=== PATIENT | female | born 1980 | race Caucasian/White ===

== ENCOUNTER 2019-04-10 12:23 | Emergency (ER) | payer BC, MEDICAID, SELFPAY ==
[2019-04-10 12:42] VITALS: BP 153/90; PULSE 84; RESP 12; TEMP 36.6; O2SAT 99
--- NOTE | 2019-04-10 12:46 | DI.RAD.S_ITS ---
PROCEDURE: XR FOOT RT MIN 3V INDICATIONS: pain/ ? injury TECHNIQUE: 3 views of the foot were acquired. COMPARISON: None. FINDINGS: Bones: No fractures or dislocations. No suspicious bony lesions. Soft tissues: No tibiotalar joint effusion. Achilles tendon appears normal. IMPRESSION: No visualized acute fracture or dislocation. However, if clinical concern and/or pain persist, short interval imaging followup in 7-10 days is recommended, as occult injury cannot be definitively excluded. Dictated by: Mirna Ott M.D. on 04/10/2019 at 13:01 Approved by: Mirna Ott M.D. on 04/10/2019 at 13:01
[2019-04-10] MEDS: KETOROLAC 60 MG/2 ML VIAL IM (13:40)
[2019-04-10 14:13] VITALS: BP 148/84; PULSE 72; RESP 16; O2SAT 97
--- NOTE | 2019-04-10 15:19 | ED_ITS ---
HPI - Extremity Injury (Lower) <ANH Daley - Last Filed: 04/10/19 15:31> General Chief Complaint: Extremity Injury, Lower Stated Complaint: Injured Right Ankle Time Seen by Provider: 04/10/19 12:44 Source: patient Mode of arrival: Ambulatory Limitations: no limitations History of Present Illness HPI Narrative: 39-year-old female nonsmoker with history of right sprained ankle who presents with a chief complaint of right foot pain. She states that it hurts just below her 5th toe right over the top of her foot. She denies any falls or trauma, but states that she was walking around a lot yesterday at work. She denies any redness, fever, nausea vomiting or diarrhea. She denies any chest pain or shortness of breath. She has not taken anything at home for pain. She is concerned about a repeat fracture. She has not rested or applied ice. Related Data Previous Rx's Medication Instructions Recorded ketorolac 10 mg PO TID PRN #15 tab 04/10/19 Allergies Allergy/AdvReac Type Severity Reaction Status Date / Time No Known Allergies Allergy Uncoded 09/29/17 12:27 Review of Systems <ANH Daley - Last Filed: 04/10/19 15:31> Review of Systems Narrative: GENERAL: Denies chills, fatigue, malaise, fever, sweats. HEENT: Denies sinus pain, ear pain, sore throat, difficulty swallowing, dizziness. RESPIRATORY: Denies dyspnea, cough, wheezing, hemoptysis, sputum. CARDIOVASCULAR: Denies chest pain, palpitations, orthopnea, edema, GASTROINTESTINAL: Denies nausea, vomiting, abdominal pain, diarrhea, constipation, melena. : Denies dysuria, frequency, incontinence, hematuria, urinary retention. MUSCULOSKELETAL: See HPI SKIN: Denies rash, skin lesions, or other NEUROLOGIC: Denies weakness, headache, numbness, change in speech, confusion, s eizures, incoordination. PSYCHIATRIC: No concerning psychosocial issues. 12 point review of systems is negative except for those stated above Patient History <ANH Daley - Last Filed: 04/10/19 15:31> Social History Smoking Status: Never smoker Substance Use Type: does not use Exam <ANH Daley - Last Filed: 04/10/19 15:31> Narrative Exam Narrative: GENERAL: This is a well-nourished, well-developed patient, in no acute distress HEAD: Atraumatic. Normocephalic. No temporal or scalp tenderness. EYES: Pupils equal round and reactive. Extraocular motions intact. No scleral icterus. No injection or drainage. ENT: Nose without bleeding, purulent drainage or septal hematoma. Throat without erythema, tonsillar hypertrophy or exudate. Uvula midline. Airway patent. NECK: Trachea midline. No JVD or lymphadenopathy. Supple, nontender, no meningeal signs. CARDIOVASCULAR: Regular rate and rhythm RESPIRATORY: No cough. No increased respiratory effort. No accessory muscle use. EXTREMITIES: Positive pedal pulses right foot. Generalized pain to palpation right foot on anterior side, pain to palpation of right navicular. Capillary refill less than 2 seconds all toes right foot. BACK: Nontender without deformity or crepitance. No flank tenderness. NEURO: AOx3. SKIN: No rash or erythema on visible skin. No erythema ecchymosis laceration abrasion rash noted on right foot. Initial Vital Signs Initial Vital Signs: Vital Signs Temperature 97.8 F 04/10/19 12:42 Pulse Rate 84 04/10/19 12:42 Respiratory Rate 12 04/10/19 12:42 Blood Pressure 153/90 H 04/10/19 12:42 Pulse Oximetry 99 04/10/19 12:42 <Caesar Godoy DO - Last Filed: 04/10/19 17:05> Initial Vital Signs Initial Vital Signs: Vital Signs Temperature 97.8 F 04/10/19 12:42 Pulse Rate 84 04/10/19 12:42 Respiratory Rate 12 04/10/19 12:42 Blood Pressure 153/90 H 04/10/19 12:42 Pulse Oximetry 99 04/10/19 12:42 Course <ANH Daley - Last Filed: 04/10/19 15:31> Orders Ordered: ED Orders 04/10/19 12:46 XR foot RT min 3V Stat Discontinued Medications Ketorolac Tromethamine (Toradol) 60 mg IM NOW ONE Stop: 04/10/19 13:13 Last Admin: 04/10/19 13:40 Dose: 60 mg Documented by: ASHOK Vital Signs Vital signs: Vital Signs - 8 hr 04/10/19 12:42 04/10/19 14:13 Temperature 97.8 F Pulse Rate 84 72 Respiratory Rate 12 16 Blood Pressure 153/90 H 148/84 H Pulse Oximetry 99 97 <Caesar Godoy DO - Last Filed: 04/10/19 17:05> Orders Ordered: ED Orders 04/10/19 12:46 XR foot RT min 3V Stat Discontinued Medications Ketorolac Tromethamine (Toradol) 60 mg IM NOW ONE Stop: 04/10/19 13:13 Last Admin: 04/10/19 13:40 Dose: 60 mg Documented by: ASHOK Vital Signs Vital signs: Vital Signs - 8 hr 04/10/19 12:42 04/10/19 14:13 Temperature 97.8 F Pulse Rate 84 72 Respiratory Rate 12 16 Blood Pressure 153/90 H 148/84 H Pulse Oximetry 99 97 MDM - Extremity Injury (Lower) <ANH Daley - Last Filed: 04/10/19 15:31> Lab Data Labs: Point of Care Testing Test Results Negative Urine Dip Bedside Urine Glucose Negative Bedside Urine Bilirubin - Negative Bedside Urine Ketone - Negative Urine Specific [place] 1.010 Bedside Urine Occult Blood - Negative Bedside Urine pH 6.0 Bedside Urine Protein - Negative Bedside Urine Urobilinogen - Negative Bedside Urine Nitrite - Negative Bedside Urine Leukocytes +++ 500 Esterase Imaging Data Foot x-ray: Radiologist's impression: Rebecca Juarez 39 F 1980 [place] [address] XRay Report Signed Patient: DeniceJackelin stacyRebecca [facility]#: [id number] : 1980Acct:[id number] Age/Sex: 39 / FDate of Service: 04/10/19 Loc: ED Accession Number: [id number] Procedure: XR foot RT min 3V Ordering Provider: Joanna Hutchinson PROCEDURE: XR FOOT RT MIN 3V INDICATIONS: pain/ ? injury TECHNIQUE: 3 views of the foot were acquired. COMPARISON: None. FINDINGS: Bones: No fractures or dislocations. No suspicious bony lesions. Soft tissues: No tibiotalar joint effusion. Achilles tendon appears normal. IMPRESSION: No visualized acute fracture or dislocation. However, if clinical concern and/or pain persist, short interval imaging followup in 7-10 days is recommended, as occult injury cannot be definitively excluded. Dictated by: Mirna Ott M.D. on 04/10/2019 at 13:01 Approved by: Mirna Ott M.D. on 04/10/2019 at 13:01 [facility] Narrative Medical decision making narrative: The patient is a 39-year-old female who presents with a chief complaint of foot pain that started today. X-ray was taken to evaluate for fracture, which came back negative. She has no visual abnormality the foot. She did respond well to Toradol in the emergency department, so I gave her prescription RO with strict instructions to not combine with Aleve or Motrin or other NSAIDs. Discussed at length the possibility of an occult fracture, recommended follow-up with her primary care provider especially worsening or no improvement. Discussed monitoring for signs and symptoms of infection and the patient has none at this point time. Encouraged coming back to the emergency department for any acute concerns such as chest pain, shortness of breath etc. Patient states understanding return precautions as well as follow-up care and has no questions or concerns upon discharge <Caesar Godoy DO - Last Filed: 04/10/19 17:05> Lab Data Labs: Point of Care Testing Test Results Negative Urine Dip Bedside Urine Glucose Negative Bedside Urine Bilirubin - Negative Bedside Urine Ketone - Negative Urine Specific [place] 1.010 Bedside Urine Occult Blood - Negative Bedside Urine pH 6.0 Bedside Urine Protein - Negative Bedside Urine Urobilinogen - Negative Bedside Urine Nitrite - Negative Bedside Urine Leukocytes +++ 500 Esterase Discharge Plan Departure Patient Disposition: Home Clinical Impression: Acute foot pain Qualifiers: Laterality: right Qualified Code(s): M79.671 - Pain in right foot Discharge Date/Time: 04/10/19 14:14 Instructions: How To Perform RICE (Rest, Ice, Compress, Elevate), DI for Foot Pain Activity Restrictions/Additional Instructions: I have given you a prescription of Toradol. This is an NSAID. Do not combine it with other NSAIDs such as Aleve or ibuprofen. I suggest taking it with some food, as it can irritate your stomach. As I discussed, your x-ray shows no acute fracture. This does not rule out a soft tissue injury such as a ligament or tendon injury. It is important that you follow up with primary care provider, especially if worsening or no improvement. There can be fractures that did not show up on initial x-ray. Please rest ice compression elevation. You can also take Tylenol. Please come back to the emergency department for any acute concerns. Prescriptions: New ketorolac 10 mg tablet 10 mg PO TID PRN (Reason: pain) Qty: 15 RF: 0 Referrals: [facility] [Outside] Steven Alatorre MD [Primary Care Provider] - Stand Alone Forms: Work Release Note <Caesar Godoy DO - Last Filed: 04/10/19 17:05> Sign Out Provider Sign Out Attestation: I was available for consultation during this patient's emergency department visit. This chart is signed by myself for administrative purposes only. I did not have direct contact with this patient during this visit. They were seen independently by the APC.
== END 2019-04-10 14:14 | disposition home or self-care (01) ==
PROVIDERS: Emergency Provider Nurse Practitioner Family
DX: M79.671 Pain in right foot (principal)
CPT/HCPCS: 73630; 81003; 81025; 96372; 99282; 99283; J1885

== ENCOUNTER 2019-06-18 19:03 | Emergency (ER) | payer BC, SELFPAY ==
[2019-06-18 19:18] VITALS: BP 154/79; PULSE 81; RESP 22; TEMP 36.7; O2SAT 100; BMI 38.0
--- NOTE | 2019-06-18 19:22 | DI.RAD.S_ITS ---
PROCEDURE: XR CHEST 1V INDICATIONS: chest pain TECHNIQUE: One view of the chest was acquired. COMPARISON: None. FINDINGS: Surgical changes and devices: None. Lungs and pleura: Lungs are clear. No pleural effusions or pneumothorax. Mediastinum: Mediastinal contours appear normal. Heart size is normal. Bones and chest wall: No suspicious bony lesions. Overlying soft tissues appear unremarkable. IMPRESSION: No acute cardiopulmonary disease. Dictated by: Sheela Chirinos M.D. on 06/18/2019 at 19:41 Approved by: Sheela Chirinos M.D. on 06/18/2019 at 19:41
[2019-06-18 19:27] LABS: Add Manual Diff / Slide Review NO; Basophils Absolute Auto 0 /uL (0-100); Basophils Percent Auto 0.4 % (0-2); Eosinophils Absolute Auto 100 /uL (0-450); Eosinophils Percent Auto 1.4 % (2-4); Hematocrit 37.9 % (36-46); Hemoglobin 12.6 g/dL (12.0-16.0); Lymphocytes Absolute Auto 800 /uL (1100-4500); Mean Corpuscular HGB Conc 33.3 % (30-36); Mean Corpuscular Hemoglobin 26.4 PG (26-34); Mean Corpuscular Volume 79.1 fL (80-100); Monocytes Absolute Auto 400 /uL (0-900); Monocytes Percent Auto 10.3 % (3-14); Neutrophils Absolute Auto 2700 /uL (1500-7000); Neutrophils Percent Auto 66.9 % (50-75); Platelet Count 209 X10^3/uL (150-400); Red Blood Cell Count 4.79 X10^6/uL (4.0-5.2); Red Cell Distribution Width 15.1 % (11.6-14.8)
[2019-06-18 19:36] LABS: INR 1.2 (0.9-1.3); Prothrombin Time 13.8 SECONDS (10.1-12.7)
--- NOTE | 2019-06-18 19:37 | ED_ITS ---
HPI - Chest Pain General Chief Complaint: Chest Pain Stated Complaint: chest pain Time Seen by Provider: 06/18/19 19:37 Mode of arrival: Ambulatory History of Present Illness HPI narrative: Patient presents with 4 days of chest pain pressure focused in the epigastric low chest area radiating up into the right side of her chest occasionally severe enough to radiate through to her back. No nausea, vomiting, diarrhea, fevers. She describes the pain as ?difficult to explain?, more sharp than burning and does not feel like her reflux issues. When she gets the e pisodes of pain it is not associated with exertion, nausea, diaphoresis or dyspnea. It is not positional and not pleuritic in nature. She describes no recent illnesses, no cough, asthma, prior cardiac history, syncope or orthopnea. Related Data Previous Rx's Medication Instructions Recorded ketorolac 10 mg PO TID PRN #15 tab 04/10/19 Allergies Allergy/AdvReac Type Severity Reaction Status Date / Time No Known Allergies Allergy Uncoded 09/29/17 12:27 Review of Systems Review of Systems Narrative: All systems reviewed and are unremarkable except as noted in HPI and below Patient History Social History Smoking Status: Never smoker Smoking Status: Never smoker Substance Use Type: does not use Exam Narrative Exam Narrative: General: Healthy appearing, in mild distress. Able to give a complete and coherent history. Well-nourished well-developed HEENT: Moist mucous membranes, normal sclera with reactive pupils, Neck: No JVD, supple Respiratory: Lungs are clear to auscultation, no wheezing no rales no rhonchi. Full and symmetrical air movement Cardiac: Regular rate and rhythm no murmurs no bruits Abdomen: Soft, mild tenderness in the epigastrium and right upper quadrant good bowel tones, no flank pain Skin: Warm and dry, no rashes Neurologic: Grossly neurologically intact with no obvious asymmetries or abnormalities Extremities: No trauma, well perfused Psych: Cooperative, appropriate insight and affect Initial Vital Signs Initial Vital Signs: Vital Signs Temperature 98.1 F 06/18/19 19:18 Pulse Rate 81 06/18/19 19:18 Respiratory Rate 22 06/18/19 19:18 Blood Pressure 154/79 H 06/18/19 19:18 Pulse Oximetry 100 06/18/19 19:18 Course Orders Ordered: ED Orders 06/18/19 19:12 EKG-12 Lead Stat 06/18/19 19:16 Complete Blood Count AUTO DIFF Stat Comprehensive Metabolic Panel Stat Lipase Stat Partial Thromboplastin Time Stat Prothrombin Time INR Stat Troponin & CK Cardiac Panel Stat 06/18/19 19:22 XR chest 1V Stat 06/18/19 19:52 US abdomen limited Stat Nitroglycerin (Nitrostat) 0.4 mg SL [id number] PRN PRN Reason: Chest Pain Last Admin: 06/18/19 20:27 Dose: 0.4 mg Documented by: Admin: 06/18/19 20:00 Dose: 0.4 mg Documented by: ASHOK Discontinued Medications Acetaminophen (Tylenol) 650 mg PO NOW ONE Stop: 06/18/19 21:24 Last Admin: 06/18/19 21:29 Dose: 650 mg Documented by: RUPA Aspirin (Aspirin Chew) 324 mg PO NOW ONE Stop: 06/18/19 19:51 Last Admin: 06/18/19 19:59 Dose: 324 mg Documented by: ASHOK Vital Signs Vital signs: Vital Signs - 8 hr 06/18/19 19:18 06/18/19 20:00 06/18/19 20:12 Temperature 98.1 F Pulse Rate 81 99 H Respiratory Rate 22 20 Blood Pressure 154/79 H 154/79 H Blood Pressure [Left Arm] Pulse Oximetry 100 98 06/18/19 20:27 06/18/19 21:13 06/18/19 22:04 Temperature Pulse Rate 77 72 66 Respiratory Rate Blood Pressure 126/77 Blood Pressure [Left Arm] 113/66 119/68 Pulse Oximetry 99 99 MDM - Chest Pain Differential Diagnosis Differential diagnosis: Likely pneumothorax, atypical chest pain, c ostochondritis, chest pain, biliary colic and other Medical Records Data Attestation: I reviewed the patient's medical records. Lab Data Attestation: I reviewed the patient's lab results. Result diagrams: 06/18/19 19:16 06/18/19 19:16 Labs: Lab Results 06/18/19 06/18/19 06/18/19 Range/Units 19:16 19:16 19:16 WBC 4.0 L (4.5-11.0) X10^3/uL RBC 4.79 (4.0-5.2) X10^6/uL Hgb 12.6 (12.0-16.0) g/dL Hct 37.9 (36-46) % MCV 79.1 L (80-100) fL MCH 26.4 (26-34) PG MCHC 33.3 (30-36) % RDW 15.1 H (11.6-14.8) % Plt Count 209 (150-400) X10^3/uL Neut % (Auto) 66.9 (50-75) % Lymph % (Auto) 21.0 L (25-40) % [place] % (Auto) 10.3 (3-14) % Eos % (Auto) 1.4 L (2-4) % Baso % (Auto) 0.4 (0-2) % Neut # (Auto) 2700 (3132-9305) /uL Lymph # (Auto) 800 L (7867-4961) /uL [place] # (Auto) 400 (0-900) /uL Eos # (Auto) 100 (0-450) /uL Baso # (Auto) 0 (0-100) /uL PT 13.8 H (10.1-12.7) SECONDS INR 1.2 (0.9-1.3) APTT 34 (26.4-36.2) SECONDS Sodium 138 (137-145) mmol/L Potassium 3.9 (3.4-5.1) mmol/L Chloride 101 (98-107) mmol/L Carbon Dioxide 26 (22-32) mmol/L BUN 10 (7-17) mg/dL Creatinine 0.90 (0.52-1.04) mg/dL Estimated GFR > 60.0 (>60) mL/min BUN/Creatinine Ratio 11.1 (6-22) Glucose 100 (70-100) mg/dL Calcium 9.1 (8.4-10.2) mg/dL Total Bilirubin 0.5 (0.2-1.3) mg/dL AST 21 (14-36) IU/L ALT 17 (<35) IU/L Alkaline Phosphatase 100 (38-126) U/L Total Creatine Kinase 123 (30-135) U/L CK-MB (CK-2) 1.22 (<2.37) ng/mL CK-MB (CK-2) Rel Index 1.0 L (1.5-5.0) % Troponin I < 0.012 (0.01-0.034) ng/mL Total Protein 7.9 (6.3-8.2) g/dL Albumin 4.6 (3.5-5.0) g/dL Globulin 3.3 (1.7-4.1) g/dL Albumin/Globulin Ratio 1.4 (1.0-2.8) Lipase 22 L (23-300) U/L Imaging Data Chest x-ray: Attestation: I personally reviewed and interpreted this imaging study as follows: Radiologist's Impression: IMPRESSION: No acute cardiopulmonary disease. Dictated by: Sheela Chirinos M.D. on 06/18/2019 at 19:41 Abdominal ultrasound: Attestation: I personally reviewed and interpreted this imaging study as follows: Radiologist's Impression: IMPRESSION: 1. Normal gallbladder. No gallstones wall thickness no findings to suggest acute cholecystitis. 2. Diffusely increased hepatic echotexture. This finding is most likely secondary to hepatic fatty infiltration although other hepatocellular disease may have a similar appearance. Recommend clinical correlation. Dictated by: Sheela Chirinos M.D. on 06/18/2019 at 21:22 ECG Data Attestation: I personally reviewed and interpreted this ECG as follows: Interpretation: Sinus rhythm at a rate of 88 beats per minute. Normal axis, partial right bundle branch block, no ischemia MDM Narrative Medical decision making narrative: Presenting with days of central chest pain radiating up to the right side. Cardiac workup is unremarkable with negative troponin and EKG. Abdominal ultrasound does not suggest gallbladder disease. At this point most likely diagnosis is musculoskeletal pain. There's no evidence of pneumothorax, pulmonary embolism, upper GI bleeding. Gastritis is a l possibility as well. Will have her follow-up with her primary care physician if pain is not improving overall Discharge Plan Departure Patient Disposition: Home Clinical Impression: Atypical chest pain Instructions: DI for Atypical Chest Pain Activity Restrictions/Additional Instructions: Thank you for coming in today. I did not find a life-threatening cause for your chest pain today. Specifically I do not think that it is related to your heart, your lungs or your gallbladder. It may still be related to some of the heartburn symptoms she been having however you do describe it as non burning and different. I suspect that most likely it is musculoskeletal and will go away. If you're having worsening symptoms or developed acute shortness of breath with sweating, I would recommend returning to the emergency room for further evaluation I hope you feel better Prescriptions: No Action ketorolac 10 mg tablet 10 mg PO TID PRN (Reason: pain) Qty: 15 RF: 0 Referrals: Steven Alatorre MD [Primary Care Provider] -
[2019-06-18 19:39] LABS: PTT Partial Thromboplastin Tim 34 SECONDS (26.4-36.2)
[2019-06-18 19:40] LABS: Alanine Aminotransferase 17 IU/L (<35); Albumin 4.6 g/dL (3.5-5.0); Albumin Globulin Ratio 1.4 (1.0-2.8); Alkaline Phosphatase 100 U/L (38-126); Aspartate Aminotransferase 21 IU/L (14-36); BUN Creatinine Ratio 11.1 (6-22); Bilirubin Total 0.5 mg/dL (0.2-1.3); Blood Urea Nitrogen 10 mg/dL (7-17); Calcium 9.1 mg/dL (8.4-10.2); Carbon Dioxide 26 mmol/L (22-32); Chloride 101 mmol/L (98-107); Creatine Kinase 123 U/L (30-135); Estimated Glomerular Filt Rate > 60.0 mL/min (>60); Globulin 3.3 g/dL (1.7-4.1); Glucose 100 mg/dL (70-100); HEMOLYSIS < 15 (0-50); Lipase 22 U/L (23-300); Potassium 3.9 mmol/L (3.4-5.1); Sodium 138 mmol/L (137-145); Total Protein 7.9 g/dL (6.3-8.2)
[2019-06-18 19:52] LABS: Troponin I < 0.012 ng/mL (0.01-0.034)
--- NOTE | 2019-06-18 19:52 | DI.US.S_ITS ---
PROCEDURE: US ABDOMEN LIMITED INDICATIONS: RIGHT UPPER QUADRANT PAIN, ? GALLBLADDER TECHNIQUE: Real-time focused scanning was performed of the abdomen, with image documentation. COMPARISON: None. FINDINGS: Gallbladder appears normal. No gallstones or gallbladder wall thickening. No pericholecystic fluid or sonographic Cardenas's sign. Common bile duct is normal in caliber measuring 4 mm. Pancreas is obscured by overlying bowel gas. Visualized liver demonstrates diffuse increased echotexture consistent with fatty infiltration. IMPRESSION: 1. Normal gallbladder. No gallstones wall thickness no findings to suggest acute cholecystitis. 2. Diffusely increased hepatic echotexture. This finding is most likely secondary to hepatic fatty infiltration although other hepatocellular disease may have a similar appearance. Recommend clinical correlation. Dictated by: Sheela Chirinos M.D. on 06/18/2019 at 21:22 Approved by: Sheela Chirinos M.D. on 06/18/2019 at 21:24
[2019-06-18 19:55] LABS: Creatine Kinase MB 1.22 ng/mL (<2.37)
[2019-06-18] MEDS: ASPIRIN 81 MG CHEW TAB 324 MG PO (19:59)
[2019-06-18 20:00] VITALS: BP 154/79; PULSE 99
[2019-06-18] MEDS: NITROGLYCERIN 0.4 MG SL TAB SL ×2 (20:00→20:27)
[2019-06-18 20:12] VITALS: RESP 20; O2SAT 98
[2019-06-18 20:27] VITALS: BP 126/77; PULSE 77
[2019-06-18 21:13] VITALS: BP 113/66; PULSE 72; O2SAT 99
[2019-06-18] MEDS: ACETAMINOPHEN 325 MG TABLET 650 MG PO (21:29)
[2019-06-18 22:04] VITALS: BP 119/68; PULSE 66; O2SAT 99
== END 2019-06-18 22:35 | disposition home or self-care (01) ==
PROVIDERS: Emergency Provider Emergency Medicine
DX: R07.89 Other chest pain (principal); R10.13 Epigastric pain
CPT/HCPCS: 36415; 71045; 76705; 80053; 82550; 82553; 83690; 84484; 85025; 85610; 85730; 93005; 99284; 99285

== ENCOUNTER 2021-07-24 16:23 | Emergency (ER) | payer BC, SELFPAY ==
[2021-07-24 16:29] VITALS: BP 159/110; PULSE 82; RESP 15; TEMP 35.8; O2SAT 100; BMI 29.0
--- NOTE | 2021-07-24 16:33 | DI.RAD.S_ITS ---
PROCEDURE: XR TIBIA FIBULA LT 2V INDICATIONS: left lower leg pain TECHNIQUE: 2 views of the tibia and fibula were acquired. COMPARISON: None. FINDINGS: Bones: No fractures or dislocations. No suspicious bony lesions. Soft tissues: No suspicious soft tissue calcifications or masses. IMPRESSION: No acute finding. Dictated by: Scott Vega M.D. on 07/24/2021 at 16:52 Approved by: Scott Vega M.D. on 07/24/2021 at 16:53
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
[2021-07-24] MEDS: KETOROLAC 30 MG/ML VIAL 15 MG IM (19:39)
[2021-07-24 19:46] VITALS: BP 147/80; PULSE 80; RESP 16; O2SAT 99
== END 2021-07-24 19:46 | disposition home or self-care (01) ==
PROVIDERS: Emergency Provider Nurse Practitioner Critical Care Medicine
DX: S86.892A Other injury of other muscle(s) and tendon(s) at lower leg level, left leg, initial encounter (principal); X58.XXXA Exposure to other specified factors, initial encounter
CPT/HCPCS: 73590; 96372; 99283; J1885

== ENCOUNTER → 2021-09-29 13:46 | Outpatient (CLI) | payer BC, SELFPAY ==
--- NOTE | 2021-09-29 13:47 | DI.US.S_ITS ---
PROCEDURE: US OB <= 14 WEEKS FETUS INDICATIONS: DATES OUTSIDE/PRIOR DATING DATA: Last menstrual period (LMP): 07/19/2021 LMP-based estimated date of delivery (CHARLOTTE): 04/25/2022. First dating scan (date and location): 09/29/2021. Estimated date of delivery ([place]OT[place]) from first dating scan: 04/24/2022. The calculations are made using the ultrasound [place]OT[place] of 04/24/2022. TECHNIQUE: Real-time scanning was performed of the fetus and maternal pelvic organs, with image documentation. Endovaginal scanning was also performed to better visualize the fetus and maternal ovaries. COMPARISON: None. FINDINGS: Embryo: [place]-rump length measures 3.5 cm corresponding to 10 weeks 3 days. Heart rate: 173 Maternal organs: Right ovary not visualized. Normal left ovary. IMPRESSION: 10 week 3 day single living IUP. We strive to produce accurate, complete, and clear reports of imaging services. To assist us in improving patient care, this report was composed using standard report templates and voice recognition software. Therefore, it may contain abnormal punctuation, insertions and/or omissions. Occasional wrong-word or sound-alike substitutions may occur. Though we review the report and make efforts to correct it, we do recommend that the report be read carefully in proper context to recognize any text inaccuracies. Dictated by: Richy TIPTON Interpreted: Deacon Bee MD on 09/29/2021 at 15:00 Transcribed by: LAUREN on 09/29/2021 at 15:01 Approved by: Deacon Bee M.D. on 09/29/2021 at 15:20
[2021-09-29 14:48] LABS: Add Manual Diff / Slide Review NO; Basophils Absolute Auto 100 /uL (0-100); Basophils Percent Auto 0.6 % (0-2); Eosinophils Absolute Auto 100 /uL (0-450); Eosinophils Percent Auto 1.6 % (2-4); Hematocrit 36.6 % (36-46); Hemoglobin 12.4 g/dL (12.0-16.0); Lymphocytes Absolute Auto 1500 /uL (1100-4500); Lymphocytes Percent Auto 17.5 % (25-40); Mean Corpuscular HGB Conc 33.8 % (30-36); Mean Corpuscular Hemoglobin 28.7 PG (26-34); Mean Corpuscular Volume 84.9 fL (80-100); Monocytes Absolute Auto 600 /uL (0-900); Monocytes Percent Auto 6.8 % (3-14); Neutrophils Absolute Auto 6200 /uL (1500-7000); Neutrophils Percent Auto 73.5 % (50-75); Platelet Count 219 X10^3/uL (150-400); Red Blood Cell Count 4.31 X10^6/uL (4.0-5.2); Red Cell Distribution Width 12.7 % (11.6-14.8); White Blood Cell Count 8.4 X10^3/uL (4.5-11.0)
[2021-09-29 14:49] LABS: Add Manual Diff / Slide Review NO; Basophils Absolute Auto 0 /uL (0-100); Basophils Percent Auto 0.5 % (0-2); Eosinophils Absolute Auto 100 /uL (0-450); Eosinophils Percent Auto 1.6 % (2-4); Hematocrit 36.4 % (36-46); Hemoglobin 12.2 g/dL (12.0-16.0); Lymphocytes Absolute Auto 1500 /uL (1100-4500); Lymphocytes Percent Auto 17.4 % (25-40); Mean Corpuscular HGB Conc 33.6 % (30-36); Mean Corpuscular Hemoglobin 28.5 PG (26-34); Monocytes Absolute Auto 600 /uL (0-900); Monocytes Percent Auto 6.6 % (3-14); Neutrophils Absolute Auto 6300 /uL (1500-7000); Neutrophils Percent Auto 73.9 % (50-75); Platelet Count 213 X10^3/uL (150-400); Red Blood Cell Count 4.28 X10^6/uL (4.0-5.2); Red Cell Distribution Width 12.9 % (11.6-14.8); White Blood Cell Count 8.6 X10^3/uL (4.5-11.0)
[2021-09-29 16:13] LABS: Alanine Aminotransferase 14 IU/L (<35); Albumin 4.2 g/dL (3.5-5.0); Albumin Globulin Ratio 1.2 (1.0-2.8); Alkaline Phosphatase 65 U/L (38-126); Aspartate Aminotransferase 18 IU/L (14-36); BUN Creatinine Ratio 16.7 (6-22); Bilirubin Total 0.2 mg/dL (0.2-1.3); Blood Urea Nitrogen 8 mg/dL (7-17); Carbon Dioxide 28 mmol/L (22-32); Chloride 102 mmol/L (98-107); Cholesterol 181 mg/dL (140-199); Estimated Glomerular Filt Rate > 60.0 mL/min (>60); Globulin 3.4 g/dL (1.7-4.1); Glucose 86 mg/dL (70-100); HDL Cholesterol 77 mg/dL (40-60); HEMOLYSIS < 15 (0-50); LDL Cholesterol Calculated 91 mg/dL (<100); Potassium 3.7 mmol/L (3.4-5.1); Sodium 137 mmol/L (137-145); Total Protein 7.6 g/dL (6.3-8.2); Triglycerides 65 mg/dL (35-150)
[2021-09-29 16:31] LABS: Appearance Urine UA CLEAR; Bilirubin Urine UA NEGATIVE (NEGATIVE); Color Urine UA YELLOW; Glucose Urine UA NEGATIVE (Negative); Ketones Urine UA NEGATIVE (NEGATIVE); Leukocyte Esterase Urine UA 1+ (NEGATIVE); Nitrite Urine UA NEGATIVE (Negative); Occult Blood Urine UA NEGATIVE (Negative); Protein Urine UA NEGATIVE (Negative); Specific Gravity Urine UA <=1.005 (1.000-1.035); Urobilinogen Urine UA 0.2 E.U./dL (0.2)
[2021-09-29 16:42] LABS: pH Urine UA 6.5 (4.5-8.0)
[2021-09-29 16:55] LABS: Amorphous Sediment Urine 1+; Bacteria Urine None Seen; Culture Indicated Urine Cult Not Indicated; RBC Urine None Seen (0-5/HPF); Squamous Epithelial Cell Urine 10-30 /HPF (0-5/HPF); WBC Urine 0-1/HPF (0-5/HPF)
[2021-09-29 17:07] LABS: Hepatitis B Surface Antigen NEGATIVE s/c (NEGATIVE); Rubella Antibody IgG 74.4 IU/mL (>15)
[2021-09-29 17:21] LABS: HIV 1 & 2 Ab/Ag 4th Gen Combo NEGATIVE (NEGATIVE); Hep C Virus Ab w/Reflex Quant NEGATIVE s/c (NEGATIVE)
[2021-09-30 07:49] LABS: RPR Screen Non Reactive (Non Reactive); Varicella IgG Antibody <135 index (Immune >165)
== END ==
PROVIDERS: PCP Family Medicine; Referring Provider Obstetrics & Gynecology; Visit Provider Obstetrics & Gynecology
DX: Z36.87 Encounter for antenatal screening for uncertain dates (principal); O99.891 Other specified diseases and conditions complicating pregnancy; M54.42 Lumbago with sciatica, left side; M79.662 Pain in left lower leg; G89.29 Other chronic pain; Z13.220 Encounter for screening for lipoid disorders; Z3A.10 10 weeks gestation of pregnancy
CPT/HCPCS: 36415; 76801; 76817; 80053; 80055; 80061; 81003; 81015; 85025; 86787; 86803; 86850; 86900; 86901; 87086; 87389

== ENCOUNTER → 2021-10-01 10:54 | Outpatient (CLI) | payer BC, SELFPAY ==
[2021-10-01 11:15] LABS: Specimen Label NATERA
== END ==
PROVIDERS: PCP Family Medicine; Referring Provider Obstetrics & Gynecology; Visit Provider Obstetrics & Gynecology
DX: Z34.81 Encounter for supervision of other normal pregnancy, first trimester (principal); Z3A.10 10 weeks gestation of pregnancy
CPT/HCPCS: 36415

== ENCOUNTER 2021-11-15 18:08 | Emergency (ER) | payer BC, SELFPAY ==
[2021-11-15 18:14] VITALS: BP 176/102; PULSE 93; RESP 16; TEMP 36.9; O2SAT 97; BMI 33.2
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
[2021-11-15] MEDS: OXYCODONE/ACETAMINOPHEN 5/325 TABLET 1 TAB PO (19:44)
[2021-11-15] MEDS: BACITRACIN OINT 0.9 GM PCKT 1 APPLIC TOP (19:45)
[2021-11-15] MEDS: OXYCODONE/APAP 5/325 PREPACK 1 BOTTLE MISC (20:32)
[2021-11-15 20:38] VITALS: BP 157/86; PULSE 80; RESP 18; O2SAT 98
== END 2021-11-15 20:40 | disposition home or self-care (01) ==
PROVIDERS: Emergency Provider Physician Assistant; PCP Family Medicine
DX: T23.011A Burn of unspecified degree of right thumb (nail), initial encounter (principal); X03.0XXA Exposure to flames in controlled fire, not in building or structure, initial encounter
CPT/HCPCS: 99283

== ENCOUNTER → 2021-12-09 09:07 | Outpatient (CLI) | payer BC, OTHER, SELFPAY ==
--- NOTE | 2021-12-09 09:08 | DI.US.S_ITS ---
PROCEDURE: US OB >= 14 WEEKS FETUS INDICATIONS: 20 WEEK ANATOMY SCAN OUTSIDE/PRIOR DATING DATA: Last menstrual period (LMP): 07/19/2021 LMP-based estimated date of delivery (CHARLOTTE): 04/25/2022 First dating scan (date and location): 09/29/2021 Estimated date of delivery (CHAR[place]OTTE) from first dating scan: 04/24/2022 TECHNIQUE: Real-time scanning was performed of the fetus, with image documentation and biometric measurements. COMPARISON: None. FINDINGS: General: A single living intrauterine gestation is present. Presentation: Vertex. Placenta: Placental position is anterior , without previa. Amniotic fluid index: 15.5 cm, normal range is 5-24 cm. heart rate: 150 beats per minute. Maternal cervical canal: 5.1 cm long. Normal lower limit is 2.5 cm. biometrics: Biparietal diameter: 4.8 cm, 20 week 3 day Head circumference: 17.8 cm, 20 week 2 day Abdominal circumference: 16.0 cm, 21 week 1 day Femur length: 3.3 cm, 20 week 1 day Clinically estimated gestational age: 20 week 4 day Composite gestational age from present scan: 20 week 4 day Estimated weight and percentile: 367 g, 49th percentile Anatomic survey: Neuro: Ventricles are non-dilated at less than 10 mm. Cisterna magna is normal at 3-11 mm. Cerebellum is normal in size and morphology. Nuchal skin fold: Normal at less than 6 mm between 14-21 weeks gestational age. Face: Nose and lips, facial profile are normal. Spine: No evidence for spina bifida. Heart: 4-chambered heart is present, with normal ventricular outflow tracts. Diaphragm: Diaphragm is intact. Stomach: Left-sided stomach is present. Kidneys: No hydronephrosis. Normal is less than 5 mm in 2nd trimester, less than 7 mm in 3rd trimester. Cord: 3-vessel cord has orthotopic insertion. Bladder: Normal in size. Extremities: All 4 extremities identified. IMPRESSION: Single live intrauterine consistent with a 20 week 4 day gestation by current ultrasound Normal anatomic survey Approved by: Mandeep Jett M.D. on 12/09/2021 at 11:29
== END ==
PROVIDERS: PCP Family Medicine; Referring Provider Obstetrics & Gynecology; Visit Provider Obstetrics & Gynecology
DX: Z34.82 Encounter for supervision of other normal pregnancy, second trimester (principal); Z3A.20 20 weeks gestation of pregnancy
CPT/HCPCS: 76811

== ENCOUNTER → 2022-01-23 10:16 | Outpatient (CLI) | payer BC, OTHER, SELFPAY ==
[2022-01-23 11:58] LABS: Hematocrit 35.5 % (36-46); Hemoglobin 11.7 g/dL (12.0-16.0)
[2022-01-23 13:04] LABS: GTT (PREG) 1 Hour PP 50gm Dose 123 mg/dL (76-139)
== END ==
PROVIDERS: PCP Family Medicine; Referring Provider Obstetrics & Gynecology; Visit Provider Obstetrics & Gynecology
DX: Z34.82 Encounter for supervision of other normal pregnancy, second trimester (principal); Z3A.26 26 weeks gestation of pregnancy
CPT/HCPCS: 36415; 82950; 85014; 85018; 86850

== ENCOUNTER → 2022-02-27 09:46 | Outpatient (CLI) | payer BC, OTHER, MEDICAID, SELFPAY ==
--- NOTE | 2022-02-27 09:52 | DI.US.S_ITS ---
PROCEDURE: US OB FOLLOW UP INDICATIONS: HX OLIGOHYDRAMNIOS PRIOR OUTSIDE/PRIOR DATING DATA: Last menstrual period (LMP): 07/19/2021 LMP-based estimated date of delivery ([place]): 04/25/2022 First dating scan (date and location): 09/29/2021 Estimated date of delivery (CHAR[place]OT[place]) from first dating scan: 04/24/2022 TECHNIQUE: Real-time scanning was performed of the fetus, with image documentation. COMPARISON: . 12/09/2021 FINDINGS: A single living intrauterine gestation is present Presentation: Vertex Amniotic fluid index: 18.4 heart rate: 135 beats per minute Maternal cervical canal: 5.3 centimeters Clinically estimated gestational age: 32 weeks IMPRESSION: Living intrauterine gestation at 32 weeks by clinical dates. CHERELLE is 18.4 centimeters. Dictated by: Charles Nunez M.D. on 02/27/2022 at 16:52 Approved by: Charles Nunez M.D. on 02/27/2022 at 16:54
== END ==
PROVIDERS: PCP Family Medicine; Referring Provider Obstetrics & Gynecology; Visit Provider Obstetrics & Gynecology
DX: O09.299 Supervision of pregnancy with other poor reproductive or obstetric history, unspecified trimester (principal)
CPT/HCPCS: 76816

== ENCOUNTER 2023-05-16 17:48 | Emergency (ER) | payer BC, OTHER, MEDICAID, SELFPAY ==
[2023-05-16 18:03] VITALS: BP 147/78; PULSE 87; RESP 16; TEMP 36.1; O2SAT 100; BMI 32.8
--- NOTE | 2023-05-16 21:53 | PC.NURSE ---
Patient noticed a severe sharp pain in her lateral left leg today while walking at work; denies any trauma. A purple bruise is now evident in that location.
--- NOTE | 2023-05-16 22:06 | ED.EXTPRO ---
HPI - Extremity Problem General Chief complaint: Extremity Problem,Nontraumatic Stated complaint: Left leg swelling Time Seen by Provider: 05/16/23 19:05 Source: patient Mode of arrival: Ambulatory History of Present Illness HPI Narrative: Patient is a 43-year-old female who is here for evaluation of a bruise to her left thigh. She denies any specific injury. She stated that earlier today she had some discomfort to her left thigh. She reached down and there was a small lump in the area. The bruise has spread somewhat from its initial presentation earlier in the day. She is not on blood thinners. Related Data Home Medications Medication Instructions Recorded Confirmed [id number] PO 09/15/21 03/06/22 [ Multi] Allergies Allergy/AdvReac Type Severity Reaction Status Date / Time No Known Drug Allergies Allergy Verified 05/16/23 18:07 Review of Systems Constitutional Constitutional: Reports system reviewed and no additional complaints, except as documented Gastrointestinal Gastrointestinal: Reports system reviewed and no additional complaints, except as documented Genitourinary Genitourinary: Reports system reviewed and no additional complaints, except as documented Integumentary/Breasts Skin/Breast: Reports system reviewed and no additional complaints, except as documented Hematologic/Lymphatic On Anticoagulants: No Patient History Medical History Chicken pox Surgical History H/O eye surgery History of (~01/08/14) Social History marital status: number of children: 2 household members: spouse and children lives independently: Yes pets and animals: Yes (dogs, aware of toxoplasmosis) education level: college occupational status: employed current occupational exposures/hazards: No special rosa needs: No seatbelt use: always water heater temp set < 120 deg: Yes working smoke detector in home: Yes fire extinguisher in home: Yes carbon monox detector in home: Yes firearms in home: Yes firearms unloaded and locked: Yes do you feel safe at home: Yes Smoking Status: Never smoker second hand exposure: No alcohol intake: former (Currently ) substance use type: does not use during the past year weight has: decreased > 10 lbs (tried to lose, improved diet) well-balanced diet: daily or most days daily servings fruits/ve-4 caffeine: Yes (200mg limit) Type(s) of exercise: walking Smoking Status: Never smoker alcohol intake frequency: holidays/special occasions only Substance Use Type: does not use Exam Initial Vital Signs Initial Vital Signs: Vital Signs Temperature 96.9 F L 05/16/23 18:03 Pulse Rate 87 05/16/23 18:03 Respiratory Rate 16 05/16/23 18:03 Blood Pressure 147/78 H 05/16/23 18:03 Pulse Oximetry 100 05/16/23 18:03 Oxygen Delivery Method Room Air 05/16/23 18:03 HENMT Head: normal to inspection and normocephalic Skin Other: Patient does have a 3 x 3 cm area of what appears to be a bruise on her left lateral lower thigh. Course Vital Signs Vital signs: Vital Signs - 8 hr 05/16/23 18:03 05/16/23 22:13 Temperature 96.9 F L Pulse Rate 87 72 Respiratory Rate 16 14 Blood Pressure 147/78 H 132/72 Pulse Oximetry 100 99 Oxygen Delivery Method Room Air Room Air MDM - Extremity (Nontraumatic) MDM Narrative Medical decision making narrative: Physical exam is consistent with a bruise. No imaging studies necessary. Not an infection. Discussed conservative treatment with the patient. Discharge Plan Departure Patient Disposition: Home Clinical Impression: Bruise Instructions: DI for Contusion Activity Restrictions/Additional Instructions: You can try to put some ice over the area. There was not much more to do other than let time take care of the bruise. Return to the emergency department for new symptoms. Prescriptions: No Action [id number] acid [ Multi] PO Referrals: Ziggy Tavarez MD [Primary Care Provider] - Stand Alone Forms: Patient Portal/API
[2023-05-16 22:13] VITALS: BP 132/72; PULSE 72; RESP 14; O2SAT 99
== END 2023-05-16 22:14 | disposition home or self-care (01) ==
PROVIDERS: Emergency Provider Emergency Medicine; PCP Family Medicine
DX: S70.12XA Contusion of left thigh, initial encounter (principal); X58.XXXA Exposure to other specified factors, initial encounter
CPT/HCPCS: 99281; 99282

== ENCOUNTER 2025-05-01 16:09 | Emergency (ER) | payer OTHER, BC, MEDICAID, SELFPAY ==
[2025-05-01 16:17] VITALS: BP 183/110; PULSE 78; RESP 16; TEMP 35.9; O2SAT 98; BMI 35.0
--- NOTE | 2025-05-01 16:19 | DI.RAD.S_ITS ---
PROCEDURE: XR TIBIA FUBULA RT 2V INDICATIONS: ankle injury TECHNIQUE: 2 views of the tibia and fibula were acquired. COMPARISON: [facility], CR, XR TIBIA FIBULA LT 2V, 07/24/2021, 16:32. FINDINGS: Bones: No fractures or dislocations. No suspicious bony lesions. Soft tissues: No suspicious soft tissue calcifications or masses. IMPRESSION: No acute lower leg fracture or dislocation. Dictated by: Gal Levy M.D. on 05/01/2025 at 16:58 Approved by: Gal Levy M.D. on 05/01/2025 at 16:58
--- NOTE | 2025-05-01 16:19 | DI.RAD.S_ITS ---
PROCEDURE: XR ANKLE RT MIN 3V INDICATIONS: ankle injury TECHNIQUE: 3 views of the ankle were acquired. COMPARISON: None. FINDINGS: Bones: Acute fracture involving tip of lateral malleolus with slight inferior and medially displaced fractured fragment. No other fracture or dislocation. Ankle mortise is normally aligned. No suspicious bony lesions. Soft tissues: Lateral ankle soft tissue swelling is seen. Achilles tendon appears normal. IMPRESSION: Acute slightly displaced fracture involving tip of lateral malleolus with overlying soft tissue swelling. Dictated by: Gal Levy M.D. on 05/01/2025 at 16:59 Approved by: Gal Levy M.D. on 05/01/2025 at 16:59
--- NOTE | 2025-05-01 16:19 | DI.RAD.S_ITS ---
PROCEDURE: XR FOOT RT MIN 3V INDICATIONS: Ankle injury TECHNIQUE: 3 views of the foot were acquired. COMPARISON: [facility], , XR FOOT RT MIN 3V, 04/10/2019, 12:45. FINDINGS: Bones: No fractures or dislocations. No suspicious bony lesions. Small plantar calcaneal enthesophyte is seen. Soft tissues: No tibiotalar joint effusion. Achilles tendon appears normal. IMPRESSION: No acute right foot fracture or dislocation. Dictated by: Gal Levy M.D. on 05/01/2025 at 16:58 Approved by: Gal Levy M.D. on 05/01/2025 at 16:58
[2025-05-01] MEDS: IBUPROFEN 400 MG TABLET 800 MG PO (16:23)
[2025-05-01 17:57] VITALS: BP 151/80; PULSE 86; RESP 18; O2SAT 98
--- NOTE | 2025-05-01 18:24 | ED.LOWEXIN ---
HPI - Extremity Injury (Lower) <Donnie Hernadez PA-C - Last Filed: 05/01/25 19:33> General Chief Complaint: Extremity Injury, Lower Stated Complaint: Rt ankle injury Time Seen by Provider: 05/01/25 16:19 Source: patient Mode of arrival: Wheelchair History of Present Illness HPI Narrative: 45-year-old female presents to the ED with a right ankle injury sustained just prior to arrival. Patient states that she was moving a box at work when she twisted her ankle, heard a cracking noise. Patient states she has been unable to bear weight on it due to the pain since then. Endorses some tingling. No numbness, weakness. Related Data Home Medications ?Medication ?Instructions ?Recorded ?Confirmed [id number] acid PO 09/15/21 03/06/22 [ Multi] Previous Rx's ?Medication ?Instructions ?Recorded oxycodone-acetaminophen 5 mg-325 1 tab PO Q6H PRN pain #20 tabs 05/01/25 mg tablet (Percocet) Allergies Allergy/AdvReac Type Severity Reaction Status Date / Time No Known Drug Allergies Allergy Verified 05/16/23 18:07 Review of Systems <Donnie Hernadez PA-C - Last Filed: 05/01/25 19:33> Constitutional Constitutional: Denies chills, Denies fatigue, Denies fever(s), Denies frequent falls, Denies lethargy and Denies weakness Eyes Eyes: Denies change in vision, Denies eye discharge, Denies irritation and Denies loss of vision ENT Ears, Nose, Mouth, and Throat: Denies change in voice, Denies dizziness, Denies neck pain, Denies sore throat and Denies throat swelling Cardiovascular Cardiovascular: Denies chest pain, Denies irregular heart rhythm, Denies lightheadedness, Denies palpitations, Denies dyspnea, Denies dyspnea on exertion and Denies orthopnea Respiratory Respiratory: Denies cough, Denies dyspnea, Denies dyspnea on exertion and Denies wheezing Gastrointestinal Gastrointestinal: Denies abdominal pain, Denies change in bowel habits, Denies diarrhea, Denies nausea and Denies vomiting Musculoskeletal Musculoskeletal: Denies neck pain and Denies numbness Comments: Right ankle pain, swelling on the lateral malleolar aspect Integumentary/Breasts Skin/Breast: Denies pruritus, Denies erythema, Denies rash and Denies wounds Neurologic Neurologic: Denies behavioral changes, Denies confusion, Denies dizziness, Denies frequent falls, Denies loss of vision, Denies numbness and Denies weakness Psychiatric Psychiatric: Denies anxiety, Denies behavioral changes, Denies confusion, Denies depression, Denies homicidal ideation and Denies suicidal ideation Endocrine Endocrine: Denies fatigue, Denies flushing and Denies palpitations Hematologic/Lymphatic Hematologic/Lymphatic: Denies easy bruising Allergic/Immunologic Allergic/Immunologic: Denies urticaria, Denies throat swelling and Denies wheezing Patient History <Donnie Hernadez PA-C - Last Filed: 05/01/25 19:33> Medical History Chicken pox Surgical History History of (~01/08/14) H/O eye surgery Social History marital status: number of children: 2 household members: spouse and children lives independently: Yes pets and animals: Yes (dogs, aware of toxoplasmosis) education level: college occupational status: employed current occupational exposures/hazards: No special rosa needs: No seatbelt use: always water heater temp set < 120 deg: Yes working smoke detector in home: Yes fire extinguisher in home: Yes carbon monox detector in home: Yes firearms in home: Yes firearms unloaded and locked: Yes do you feel safe at home: Yes second hand exposure: No alcohol intake: former substance use type: does not use during the past year weight has: decreased > 10 lbs well-balanced diet: daily or most days daily servings fruits/ve-4 caffeine: Yes (200mg limit) Type(s) of exercise: walking Smoking Status: Never smoker alcohol intake frequency: holidays/special occasions only Exam <Donnie Hernadez PA-C - Last Filed: 05/01/25 19:33> Narrative Exam Narrative: Const General:?cooperative, healthy appearing and comfortable [facility] Head:?normal to inspection Ears:?hearing grossly normal bilaterally Nose:?external nose normal Face and sinus:?normal facial exam and sinuses nontender Mouth:?oral mucosae normal Throat:?posterior oropharynx normal Eyes General:?appearance normal, both eyes and all related structures Neck Neck:?normal visual inspection and no lymphadenopathy noted Resp Effort & Inspection:?normal respiratory effort Auscultation:?clear to auscultation bilaterally Cardio Rate:?regular rate Rhythm:?regular rhythm Musculoskeletal There is swelling and tenderness to palpation of the lateral malleolar area of the right ankle. Neurovascularly intact. Neuro General:?patient alert, patient awake and patient oriented x3 Initial Vital Signs Initial Vital Signs: Vital Signs Temperature 96.7 F L 05/01/25 16:17 Pulse Rate 78 05/01/25 16:17 Respiratory Rate 16 05/01/25 16:17 Blood Pressure 183/110 H 05/01/25 16:17 Pulse Oximetry 98 05/01/25 16:17 Oxygen Delivery Method Room Air 05/01/25 16:17 <Prateek Degroot MD - Last Filed: 05/03/25 09:14> Initial Vital Signs Initial Vital Signs: Vital Signs Temperature 96.7 F L 05/01/25 16:17 Pulse Rate 78 05/01/25 16:17 Respiratory Rate 16 05/01/25 16:17 Blood Pressure 183/110 H 05/01/25 16:17 Pulse Oximetry 98 05/01/25 16:17 Oxygen Delivery Method Room Air 05/01/25 16:17 Course <Donnie Hernadez PA-C - Last Filed: 05/01/25 19:33> Orders Ordered: Discontinued Medications Ibuprofen (Ibuprofen 400 Mg Tablet) 800 mg PO NOW ONE Stop: 05/01/25 16:20 Last Admin: 05/01/25 16:23 Dose: 800 mg Documented By: PURNIMA Vital Signs Vital signs: Vital Signs - 8 hr 05/01/25 16:17 05/01/25 17:57 Temperature 96.7 F L Pulse Rate 78 86 Respiratory Rate 16 18 Blood Pressure 183/110 H 151/80 H Pulse Oximetry 98 98 Oxygen Delivery Method Room Air Room Air <Prateek Degroot MD - Last Filed: 05/03/25 09:14> Orders Ordered: Discontinued Medications Ibuprofen (Ibuprofen 400 Mg Tablet) 800 mg PO NOW ONE Stop: 05/01/25 16:20 Last Admin: 05/01/25 16:23 Dose: 800 mg Documented By: ML Vital Signs Vital signs: Vital Signs - 8 hr 05/01/25 16:17 05/01/25 17:57 Temperature 96.7 F L Pulse Rate 78 86 Respiratory Rate 16 18 Blood Pressure 183/110 H 151/80 H Pulse Oximetry 98 98 Oxygen Delivery Method Room Air Room Air MDM - Extremity Injury (Lower) <Donnie Hernadez PA-C - Last Filed: 05/01/25 19:33> MDM Narrative Medical decision making narrative: 45-year-old female presents to the ED with a right ankle injury sustained just prior to arrival. X-ray of the ankle shows acute slightly displaced fracture involving tip of lateral malleolus with overlying soft tissue swelling. Tib-fib and foot x-rays with no acute fracture or dislocation. Patient fitted in a splint, provided crutches. Pain medications prescribed. Recommend follow-up with PCP/ortho as soon as possible. ED return precautions discussed with patient. Patient verbalized understanding. Medical records reviewed: Yes Discharge Plan Departure Patient Disposition: Home Clinical Impression: Lateral malleolar fracture Qualifiers: Encounter type: initial encounter Fracture type: closed Fracture alignment: displaced Laterality: right Qualified Code(s): S82.61XA - Displaced fracture of lateral malleolus of right fibula, initial encounter for closed fracture Instructions: DI for Malleolar Fracture Activity Restrictions/Additional Instructions: You were evaluated in the emergency department today for an ankle injury. It appears that you have a small fracture. You are being fitted with a splint and will be provided crutches to get around. You may take Percocet, Tylenol, ibuprofen for pain control. Please follow-up with your PCP and software quality assurance specialist for further evaluation and treatment. Return to the ED if you have worsening symptoms, numbness, tingling, weakness. Prescriptions: New oxycodone-acetaminophen [Percocet] 5-325 mg tablet 1 tab PO Q6H PRN (Reason: pain) Qty: 20 0RF No Action [id number] acid [ Multi] PO Referrals: Ziggy Tavarez MD [Primary Care Provider, Family Practice] Stand Alone Forms: Patient Portal/API ED Sign-out <Prateek Degroot MD - Last Filed: 05/03/25 09:14> Cosign ED Attending Cosignature Attestation: I was immediately available in the department for consultation. This documentation has been reviewed and I agree with assessment and plan. Supervised by Prateek Degroot MD
[2025-05-01 19:55] VITALS: BP 148/83; PULSE 87; RESP 18; O2SAT 98
== END 2025-05-01 19:59 | disposition home or self-care (01) ==
PROVIDERS: Emergency Provider Student in an Organized Health Care Education/Training Program; PCP Family Medicine
DX: S82.61XA Displaced fracture of lateral malleolus of right fibula, initial encounter for closed fracture (principal); X50.1XXA Overexertion from prolonged static or awkward postures, initial encounter
CPT/HCPCS: 29515; 73590; 73610; 73630; 99283; 99284